=== PATIENT | female | born 1975 | race American Indian/Alaskan Native ===

== ENCOUNTER 2016-07-26 14:09 | Outpatient (CLI) | payer BC ==
--- NOTE | 2016-07-27 13:30 | Mammography Report ---
BILATERAL MAMMOGRAM: FINDINGS: The breast tissue is extremely dense (>75% glandular). This may lower the sensitivity of mammography. No mass, distortion, suspicious calcification, or skin change is seen. There is no significant change compared to her prior study in March 2012. CAD was utilized. IMPRESSION: Negative mammogram. There is no mammographic evidence of malignancy. RECOMMENDATION: Follow-up per ACS guidelines. BI-RADS CATEGORY: 1 = Negative ACR BI-RADS MAMMOGRAPHIC CODES: 0 = Needs additional imaging evaluation; 1 = Negative; 2 = Benign; 3 = Probably benign; 4 = Suspicious; 5 = Malignant; 6 = Known biopsy-proven malignancy COMMENT: 1. Dense breast tissue, i.e., adenosis, fibrocystic changes, etc., may obscure an underlying neoplasm. 2. Approximately 10% of cancers are not detected with mammography. 3. A negative mammography report should not delay biopsy if a clinically suspicious mass is present. COMMENT: Patient follow-up letters are generated in [email or web address].
== END 2016-07-26 14:10 | disposition home or self-care (01) ==
LOC: MAMMO 14:09
PROVIDERS: ATTEND Obstetrics & Gynecology
DX: Z12.31 Encounter for screening mammogram for malignant neoplasm of breast (principal)
CPT/HCPCS: 77067; G0202

== ENCOUNTER 2017-08-04 11:05 | Outpatient (CLI) | payer BC ==
--- NOTE | 2017-08-07 09:26 | Mammography Report ---
BILATERAL DIGITAL SCREENING MAMMOGRAM with CAD and DIGITAL BREAST TOMOSYNTHESIS (DBT) : 08/04/17 11:30:00 CLINICAL: Routine screening.Extremely dense breasts. COMPARISON:07/26/16 FINDINGS: The breasts are extremely dense, which may obscure small masses and limit the sensitivity of mammography. Two partially circumscribedasymmetries on left CC candy images require additional imaging. No architectural distortion or suspicious calcifications. The right breast is negative. IMPRESSION: Left asymmetries requiring additional imaging. BI-RADS CATEGORY: 0--Needs Additional Imaging RECOMMENDATION: Recall for left breast ultrasound. COMMENT: Patient follow-up letters are generated by our [email or web address] application.
== END 2017-08-04 11:06 | disposition home or self-care (01) ==
LOC: MAMMO 11:05
PROVIDERS: ATTEND Obstetrics & Gynecology
DX: Z12.31 Encounter for screening mammogram for malignant neoplasm of breast (principal)
CPT/HCPCS: 77063; 77067